=== PATIENT | female | born 1980 | race Caucasian/White ===

== ENCOUNTER 2023-11-06 01:35 | Emergency (ER) | payer MEDICAID ==
[~2023-11-06] VITALS: Ht 162.6 cm; Wt 60.0 kg
[2023-11-06 01:38] VITALS: BP 125/81; O2SAT 100
[2023-11-06] MEDS ORDERED: ACETAMINOPHEN 325MG TABLET PO STA (07:16)
[2023-11-06 07:45] LABS: BASOPHILS % 0.4 % (0.0-2.0); EOSINOPHILS % 3.7 % (0.0-5.0); HEMATOCRIT. 35.9 % (36.0-48.0); LYMPHOCYTES % 47.7 % (20.0-50.0); MEAN CORPUSCULAR HEMOGLOBIN 31.1 pg (28.0-32.0); MEAN CORPUSCULAR HGB CONC 33.4 g/dL (31.0-37.0); MEAN CORPUSCULAR VOLUME 93.2 fL (81.0-99.0); NEUTROPHILS % 42.2 % (40.0-76.0); PLATELET 297 x1000/uL (130-400); RED BLOOD CELL COUNT 3.85 mill/uL (4.2-5.4); RED CELL DISTRIBUTION WIDTH 13.2 % (11.6-14.6); WHITE BLOOD COUNT 9.7 x1000/uL (4.5-11.0)
[2023-11-06 08:14] LABS: ALANINE AMINOTRANSFERASE 19 IU/L (10-49); ASPARTATE AMINOTRANSFERASE 18 IU/L (<34); BILIRUBIN TOTAL 0.5 mg/dL (0.1-1.0); CARBON DIOXIDE 31 mEq/L (21-32); CHLORIDE 105 mEq/L (98-107); CREATININE 0.6 mg/dL (0.6-1.0); GLUCOSE 91 mg/dL (70-105); POTASSIUM 4.6 mEq/L (3.5-5.1); PROTEIN TOTAL 6.8 g/dL (6.0-8.3); SODIUM 140 mEq/L (136-145); UREA NITROGEN BLOOD 20 mg/dL (9-23)
[2023-11-06] MEDS ORDERED: TOPUD PO (08:34)
[2023-11-06] MEDS ORDERED: POLY17PO3 PO (08:39)
[2023-11-06 09:15] VITALS: PULSE 89; RESP 18; TEMP 98.2
== END 2023-11-06 09:16 | disposition home or self-care (01) ==
LOC: ER 01:35
DX: R53.1 Weakness (principal)
CPT/HCPCS: 36415; 71045; 80053; 85025; 99284

== ENCOUNTER 2024-04-07 09:43 | Emergency (ER) | payer MEDICAID ==
[~2024-04-07] VITALS: Ht 170.2 cm; Wt 50.0 kg
[~2024-04-07 09:43] MED LIST: POLY17PO3 PO; TOPUD PO
[2024-04-07 09:45] VITALS: O2SAT 100
[2024-04-07 10:00] LABS: BASOPHILS % 0.4 % (0.0-2.0); EOSINOPHILS % 3.4 % (0.0-5.0); HEMATOCRIT. 37.4 % (36.0-48.0); HEMOGLOBIN. 13.1 g/dL (12.0-16.0); LYMPHOCYTES % 42.4 % (20.0-50.0); MEAN CORPUSCULAR HEMOGLOBIN 32.8 pg (28.0-32.0); MEAN CORPUSCULAR VOLUME 93.6 fL (81.0-99.0); MEAN PLATELET VOLUME 7.2 fl (7.4-10.4); MONOCYTES % 4.6 % (2.0-8.0); NEUTROPHILS % 49.2 % (40.0-76.0); PLATELET 288 x1000/uL (130-400); RED CELL DISTRIBUTION WIDTH 12.9 % (11.6-14.6); WHITE BLOOD COUNT 7.6 x1000/uL (4.5-11.0)
[2024-04-07 10:05] LABS: CHLORIDE 110 mEq/L (98-107); POTASSIUM 4.3 mEq/L (3.5-5.1); SODIUM 140 mEq/L (136-145)
[2024-04-07 10:06] LABS: CARBON DIOXIDE 28 mEq/L (21-32)
[2024-04-07 10:11] LABS: GLUCOSE 122 mg/dL (70-105); UREA NITROGEN BLOOD 15 mg/dL (9-23)
[2024-04-07 10:17] LABS: CLARITY URINE CLOUDY (CLEAR); COLOR URINE DARK YELLOW (YELLOW); GLUCOSE URINE NEGATIVE (NEGATIVE); KETONES URINE NEGATIVE (NEGATIVE); LEUKOCYTE ESTERASE URINE 1+ (NEGATIVE); NITRITE URINE NEGATIVE (NEGATIVE); OCCULT BLOOD URINE NEGATIVE (NEGATIVE); PH URINE 6.5 (4.5-8.0); PROTEIN URINE NEGATIVE (NEGATIVE); SPECIFIC GRAVITY URINE 1.025 (1.005-1.030)
[2024-04-07 10:20] LABS: TROPONIN I HIGH SENSITIVITY < 4 ng/L (3.0-34)
[2024-04-07 10:24] LABS: HCG SCREEN NEGATIVE
[2024-04-07 10:33] LABS: SQUAMOUS EPITHELIAL CELL URINE 3+ /lpf (RARE/1+)
[2024-04-07 10:34] LABS: BACTERIA URINE 4+; MUCUS URINE 1+ /lpf (< = 2+)
[2024-04-07 10:35] LABS: WBC URINE 0-2 /hpf (0-2)
[2024-04-07 10:36] LABS: RBC URINE NONE SEEN /hpf (0-2)
[2024-04-07] MEDS: SODIUM CHLORIDE 0.9% 1,000 ML IV ONE (11:09)
[2024-04-07] MEDS: ONDANSETRON HCL 4MG/2ML INJ IV STA (11:09)
[2024-04-07 11:29] LABS: CALCIUM 9.7 mg/dL (8.7-10.4)
[2024-04-07 11:33] LABS: CREATININE 0.7 mg/dL (0.6-1.0)
[2024-04-07 13:21] VITALS: BP 95/74; PULSE 77; RESP 15; TEMP 98.2
== END 2024-04-07 13:22 | disposition home or self-care (01) ==
LOC: ER 09:43
DX: R53.1 Weakness (principal); R42 Dizziness and giddiness; R55 Syncope and collapse
CPT/HCPCS: 80048; 81003; 84703; 85025; 84484; 36415; 96374; 99285; J2405; J7030; Z7610 ×2